=== PATIENT | female | born 1985 | race Caucasian/White ===

== ENCOUNTER 2017-04-13 11:51 | Emergency (ER) | payer MEDICAID ==
[2015-12-22 09:34] VITALS: BMI 32.1
[~2017-04-13 11:51] MED LIST: IBUPROFEN600 MG PO; PERCOCET 5-3251 TAB PO; PRENATAL COMPLE1 TAB PO; PRILOSEC20 MG PO
== END 2017-04-13 13:50 | disposition home or self-care (01) ==
LOC: D.ER 11:51
DX: J20.9 Acute bronchitis, unspecified (principal); H92.01 Otalgia, right ear; R11.0 Nausea; R09.89 Other specified symptoms and signs involving the circulatory and respiratory systems; R53.81 Other malaise; R53.83 Other fatigue; R68.83 Chills (without fever); R13.10 Dysphagia, unspecified; F17.200 Nicotine dependence, unspecified, uncomplicated

== ENCOUNTER 2017-08-16 15:34 | Emergency (ER) | payer MEDICAID ==
[2015-12-22 09:34] VITALS: BMI 32.1
[2017-08-16 17:19] LABS: APPEARANCE CLEAR (CLEAR); BILIRUBIN NEGATIVE (NEGATIVE); COLOR STRAW (YELLOW); GLUCOSE NEGATIVE (NEGATIVE); KETONE NEGATIVE (NEGATIVE); NITRITE NEGATIVE (NEGATIVE); PROTEIN NEGATIVE (NEGATIVE); UROBILINOGEN NORMAL (NORMAL)
[2017-08-16 17:22] LABS: BACTERIA FEW /hpf (NONE SEEN); HCG URINE NEGATIVE (NEGATIVE); RED CELLS - URINE OCC /hpf (0-5)
[2017-08-16 17:27] LABS: UDS - AMPHET NEGATIVE QUAL (NEGATIVE); UDS - BARB NEGATIVE QUAL (NEGATIVE); UDS - BENZO NEGATIVE QUAL (NEGATIVE); UDS - COCAINE NEGATIVE QUAL (NEGATIVE); UDS - OPIATE NEGATIVE QUAL (NEGATIVE); UDS - PCP NEGATIVE QUAL (NEGATIVE); UDS - THC NEGATIVE QUAL (NEGATIVE)
== END 2017-08-16 18:19 | disposition home or self-care (01) ==
LOC: D.ER 15:34
PROVIDERS: Nurse Practitioner Family
DX: N39.0 Urinary tract infection, site not specified (principal); R11.10 Vomiting, unspecified; R51 Headache

== ENCOUNTER 2017-12-02 14:44 | Emergency (ER) | payer MEDICAID ==
[2015-12-22 09:34] VITALS: BMI 32.1
== END 2017-12-02 16:36 | disposition home or self-care (01) ==
LOC: D.ER 14:44
DX: K08.89 Other specified disorders of teeth and supporting structures (principal); K02.9 Dental caries, unspecified

== ENCOUNTER 2017-12-31 18:57 | Emergency (ER) | payer MEDICAID ==
[2015-12-22 09:34] VITALS: BMI 32.1
== END 2017-12-31 19:25 | disposition home or self-care (01) ==
LOC: D.ER 18:57
DX: K08.89 Other specified disorders of teeth and supporting structures (principal); K02.9 Dental caries, unspecified

== ENCOUNTER 2018-02-16 11:34 | Emergency (ER) | payer MEDICAID ==
[2015-12-22 09:34] VITALS: BMI 32.1
== END 2018-02-16 14:35 | disposition home or self-care (01) ==
LOC: D.ER 11:34
DX: S02.5XXA Fracture of tooth (traumatic), initial encounter for closed fracture (principal); X58.XXXA Exposure to other specified factors, initial encounter; Y93.9 Activity, unspecified; Y92.9 Unspecified place or not applicable; K08.89 Other specified disorders of teeth and supporting structures; I10 Essential (primary) hypertension

== ENCOUNTER 2018-03-06 08:44 | Emergency (ER) | payer MEDICAID ==
[~2018-03-06] VITALS: Ht 165.1 cm; Wt 86.4 kg
[2018-03-06 08:48] VITALS: Ht 165.1 cm; Wt 86.4 kg
[2018-03-06 10:01] LABS: BASOPHILS 0.1 % (0-2); EOSINOPHILS 0.8 % (0-7); HEMATOCRIT 36.6 % (36.0-48.0); IMMATURE GRANULOCYTES 0.3 % (0-5); LYMPHOCYTES 22.8 % (15-50); MCH 25.9 pg (26.0-34.0); MCHC 32.8 g/dL (31.0-37.0); MEAN PLATELET VOLUME 10.3 fL (7.4-10.4); MONOCYTES 5.3 % (2-11); NEUTROPHILS 70.7 % (40-80); PLATELET COUNT 146 10x3/uL (130-400); RBC 4.63 10x6/uL (4.00-5.40); WBC 7.1 10x3/uL (4.8-10.8)
[2018-03-06 10:24] LABS: ALBUMIN 3.5 g/dL (3.4-5.0); ALKALINE PHOSPHATASE 70 U/L (46-116); ALT (SGPT) 29 U/L (10-68); BILIRUBIN - TOTAL 0.45 mg/dL (0.2-1.3); CALC OSMOLALITY 283 mosm/kg (275-300); CALCIUM 8.9 mg/dL (8.5-10.1); CARBON DIOXIDE 28.3 mmol/L (21.0-32.0); CHLORIDE - SERUM 107 mmol/L (98-107); CREATINE KINASE 82 UL (21-215); CREATININE - SERUM 0.9 mg/dL (0.6-1.3); GLUCOSE 95 mg/dL (74-106); POTASSIUM - SERUM 3.4 mmol/L (3.5-5.1); PROTEIN - SERUM 7.2 g/dL (6.4-8.2); SODIUM 143 mmol/L (136-145); UREA NITROGEN 10 mg/dL (7-18); eGFR NON AFRICAN AMERICAN 78 mL/min (90-120)
[2018-03-06 10:32] LABS: APPEARANCE HAZY (CLEAR); BILIRUBIN NEGATIVE (NEGATIVE); COLOR DK YELLOW (YELLOW); GLUCOSE NEGATIVE (NEGATIVE); KETONE NEGATIVE (NEGATIVE); NITRITE NEGATIVE (NEGATIVE); PROTEIN NEGATIVE (NEGATIVE); SPECIFIC GRAVITY 1.005 (1.005-1.020)
[2018-03-06 10:33] LABS: BACTERIA MODERATE /hpf (NONE SEEN); EPITHELIAL CELLS 0-5 /hpf (0-5); MUCUS <1+ /lpf (NONE SEEN); RED CELLS - URINE 0-5 /hpf (0-5); WHITE CELLS - URINE 0-5 /hpf (0-5)
[2018-03-06] MEDS ORDERED: ZOFRAN ODT4 MG/UDTAB PO (10:52)
[2018-03-06] MEDS ORDERED: AUGMENTIN 875-11 TAB PO (10:52)
[2018-03-06 11:08] VITALS: BP 128/87
== END 2018-03-06 11:09 | disposition home or self-care (01) ==
LOC: D.ER 08:44
PROVIDERS: Family Medicine
DX: H72.91 Unspecified perforation of tympanic membrane, right ear (principal); R11.10 Vomiting, unspecified

== ENCOUNTER 2018-12-26 17:23 | Emergency (ER) | payer MEDICAID ==
[~2018-12-26] VITALS: Ht 165.1 cm; Wt 90.9 kg
[~2018-12-26 17:23] MED LIST changes: +AUGMENTIN 875-11 TAB PO; +ZOFRAN ODT4 MG/UDTAB PO
[2018-12-26 17:47] VITALS: Ht 165.1 cm; Wt 90.9 kg
[2018-12-26] MEDS ORDERED: ZOVIRAX800 MG PO ×2 (18:50)
[2018-12-26] MEDS ORDERED: AMOXICILLIN875 MG PO (18:50)
[2018-12-26 18:59] VITALS: BP 126/86
== END 2018-12-26 18:56 | disposition home or self-care (01) ==
LOC: D.ER 17:23
DX: J02.0 Streptococcal pharyngitis (principal); B00.1 Herpesviral vesicular dermatitis

== ENCOUNTER 2019-09-11 17:47 | Emergency (ER) | payer MEDICAID ==
[~2019-09-11] VITALS: Ht 165.1 cm; Wt 90.9 kg
[~2019-09-11 17:47] MED LIST changes: +AMOXICILLIN875 MG PO; +ZOVIRAX800 MG PO
[2019-09-11 17:53] VITALS: Ht 165.1 cm; Wt 90.9 kg
[2019-09-11] MEDS ORDERED: ZOFRAN ODT4 MG/UDTAB PO (19:18)
[2019-09-11 19:54] VITALS: BP 163/90
== END 2019-09-11 19:55 | disposition home or self-care (01) ==
LOC: D.ER 17:47
DX: R51 Headache (principal); R11.2 Nausea with vomiting, unspecified; T50.905A Adverse effect of unspecified drugs, medicaments and biological substances, initial encounter